=== PATIENT | female | born 1945 | race Caucasian/White ===

== ENCOUNTER 2021-12-26 05:56 | Day surgery (SDC) | payer OTHER ==
[2021-12-24 15:15] LABS: BASOPHILS % (AUTO) 0.6 % (0.0-5.0); EOSINOPHILS % (AUTO) 2.2 % (0.0-8.0); HEMATOCRIT 42.9 % (36-48); MEAN CORPUSCULAR HEMOGLOBIN 29.7 pg (27.0-33.0); MEAN CORPUSCULAR HGB CONC 31.9 g/dL (32.0-36.0); MEAN CORPUSCULAR VOLUME 92.9 fL (79-99); MONOCYTES % (AUTO) 6.7 % (3.0-13.0); NEUTROPHILS % (AUTO) 67.2 % (40.0-77.0); PLATELET COUNT (AUTO) 186 K/uL (130-400); RED BLOOD CELL COUNT(AUTO) 4.62 MIL/uL (4.00-5.50); RED CELL DISTRIBUTION WIDTH 14.6 % (11.0-15.5); WHITE BLOOD COUNT (AUTO) 7.9 K/uL (4.8-10.8)
[2021-12-24 15:27] LABS: INR 2.12 (0.85-1.15); PROTHROMBIN TIME 21.6 SEC (9.6-11.6)
[2021-12-24 15:29] LABS: PARTIAL THROMBOPLASTIN TIME 42.7 SEC (26.3-35.5)
[2021-12-24 15:57] LABS: CREATININE 1.1 mg/dL (0.5-1.5); POTASSIUM 3.8 mmol/L (3.5-5.1)
[2021-12-25 10:13] VITALS: BP 158/61
[2021-12-26] VITALS (8 sets, daily range): BP systolic 94–155; BP diastolic 47–70
[~2021-12-26] VITALS: Ht 167.6 cm; Wt 110.2 kg
[~2021-12-26 05:56] MED LIST: BRIM5DRO4 OD; DORZ10DR19 OD; FURO80TA3 PO; LEVO75TA10 PO; METO-391 PO; SPIR25TA6 PO; WARF-57 PO; WARF7.5T49 PO
[2021-12-26] MEDS ORDERED: BUPIVACAINE/PF 0.25% 30ML VIAL IJ ONE (07:28)
[2021-12-26] MEDS ORDERED: MIDAZOLAM HCL 1 MG/ML 2ML VIAL ONE ×4 (07:28→11:07)
[2021-12-26] MEDS ORDERED: FENTANYL CITRATE PF 50 MCG/1 ML 2ML VIAL ONE (07:29)
[2021-12-26] MEDS ORDERED: LIDOCAINE HCL 1% MDV 50ML VIAL ONE (07:29)
[2021-12-26] MEDS ORDERED: MEPERIDINE-PF 50 MG/ML SYG ONE ×3 (07:35→11:07)
[2021-12-26] MEDS ORDERED: CEFAZOLIN SODIUM 1 GM VIAL IVP ONE (08:00)
[2021-12-26] MEDS ORDERED: 0.9%NACL 1000ML 1,000 ML IV SCH (08:00)
[2021-12-26] MEDS ORDERED: THROMBIN-JMI 5000 UNIT/VIAL TP ONE (10:50)
[2021-12-26] MEDS ORDERED: TRAM50TA4 PO (11:39)
[2021-12-26] MEDS ORDERED: ACETAMINOPHEN WITH CODEINE 1 TAB TAB PO PRN (12:00)
== END 2021-12-26 14:10 | disposition home or self-care (01) ==
LOC: DAH 05:56
PROVIDERS: ATTEND Internal Medicine Cardiovascular Disease
DX: Z45.02 Encounter for adjustment and management of automatic implantable cardiac defibrillator (principal); I42.8 Other cardiomyopathies; I11.0 Hypertensive heart disease with heart failure; I50.22 Chronic systolic (congestive) heart failure; E03.9 Hypothyroidism, unspecified; I47.1 Supraventricular tachycardia; I48.0 Paroxysmal atrial fibrillation; E66.01 Morbid (severe) obesity due to excess calories; M19.90 Unspecified osteoarthritis, unspecified site; Z90.49 Acquired absence of other specified parts of digestive tract; Z85.038 Personal history of other malignant neoplasm of large intestine; Z85.43 Personal history of malignant neoplasm of ovary; Z92.21 Personal history of antineoplastic chemotherapy; Z98.890 Other specified postprocedural states; Z82.49 Family history of ischemic heart disease and other diseases of the circulatory system; Z68.41 Body mass index [BMI] 40.0-44.9, adult
CPT/HCPCS: 33218; 33264; 36415; 80048; 85025; 85610; 85730; 93005; A4215; A4216; A4221; A4222; A4223 ×3; A4606; A4663; A6258; A6402; C1882; J0690; J2175 ×3; J2250 ×4; J3490 ×3; 99156; 99157; J3010

== ENCOUNTER 2023-06-12 23:44 | Emergency (ER) | payer OTHER ==
[~2023-06-12] VITALS: Ht 170.2 cm; Wt 108.9 kg
[~2023-06-12 23:44] MED LIST changes: -BRIM5DRO4 OD; +BRIM5DRO5 OD; +TRAM50TA4 PO
[2023-06-13 00:35] LABS: CREATININE 1.2 mg/dL (0.5-1.5); POTASSIUM 3.4 mmol/L (3.5-5.1)
[2023-06-13 00:36] LABS: BASOPHILS % (AUTO) 0.7 % (0.0-5.0); EOSINOPHILS % (AUTO) 2.7 % (0.0-8.0); HEMATOCRIT 33.4 % (36-48); INR 2.37 (0.85-1.15); LYMPHOCYTES % (AUTO) 25.5 % (21.0-51.0); MEAN CORPUSCULAR HGB CONC 30.5 g/dL (32.0-36.0); MEAN CORPUSCULAR VOLUME 85.2 fL (79-99); MONOCYTES % (AUTO) 8.7 % (3.0-13.0); NEUTROPHILS % (AUTO) 62.1 % (40.0-77.0); PLATELET COUNT (AUTO) 198 K/uL (130-400); RED BLOOD CELL COUNT(AUTO) 3.92 MIL/uL (4.00-5.50); RED CELL DISTRIBUTION WIDTH 17.8 % (11.0-15.5)
[2023-06-13 00:37] LABS: PARTIAL THROMBOPLASTIN TIME 43.5 SEC (26.3-35.5)
[2023-06-13 00:40] LABS: ALBUMIN 3.4 g/dL (3.5-5.0); PHOSPHORUS 3.3 mg/dL (2.5-4.9); TOTAL PROTEIN, SERUM 6.7 g/dL (6.0-8.3)
[2023-06-13 02:32] VITALS: BP 132/49; PULSE 60; RESP 16; O2SAT 96
== END 2023-06-13 06:49 | disposition home or self-care (01) ==
LOC: EDH 23:44
DX: R42 Dizziness and giddiness (principal); Z79.899 Other long term (current) drug therapy; Z95.810 Presence of automatic (implantable) cardiac defibrillator
CPT/HCPCS: 36415; 71045; 80053; 83735; 84100; 84443; 84484; 85025; 85610; 85730; 93005

== ENCOUNTER 2023-06-25 14:01 | Inpatient (IN) | payer OTHER ==
[~2023-06-25] VITALS: Ht 170.2 cm; Wt 110.8 kg
[2023-06-25 18:20] LABS: APPEARANCE,URINE CLEAR (CLEAR); BILIRUBIN,URINE NEGATIVE (NEGATIVE); GLUCOSE, URINE (UA) NEGATIVE (NEGATIVE); KETONES,URINE NEGATIVE (NEGATIVE); LEUKOCYTE ESTERASE ,URINE 25 Leu/uL (NEGATIVE); NITRATE,URINE NEGATIVE (NEGATIVE); PH,URINE 5.5 (5.0-8.0); PROTEIN,URINE NEGATIVE (NEGATIVE); UROBILINOGEN,URINE 0.2 mg/dL (0.2-1.0)
[2023-06-25 18:22] LABS: ADD UA MICROSCOPIC YES; COLOR,URINE YELLOW (YELLOW)
[2023-06-25 18:23] LABS: BACTERIA,URINE RARE /HPF (None Seen); SQUAMOUS EPITHELIAL CELL,UR RARE /HPF (0-2)
[2023-06-25 18:42] LABS: BASOPHILS # (AUTO) 0.05 K/uL (0.00-0.20); BASOPHILS % (AUTO) 0.7 % (0.0-5.0); EOSINOPHILS # (AUTO) 0.13 K/uL (0.00-0.70); EOSINOPHILS % (AUTO) 1.9 % (0.0-8.0); HEMATOCRIT 31.4 % (36-48); IMMATURE GRANULOCYTE ABSOLUTE 0.02 K/uL (0-1); LYMPHOCYTES # (AUTO) 1.6 K/uL (1.0-4.8); LYMPHOCYTES % (AUTO) 22.6 % (21.0-51.0); MEAN CORPUSCULAR HEMOGLOBIN 25.6 pg (27.0-33.0); MEAN CORPUSCULAR HGB CONC 30.6 g/dL (32.0-36.0); MEAN CORPUSCULAR VOLUME 83.7 fL (79-99); MONOCYTES # (AUTO) 0.6 K/uL (0.1-1.0); MONOCYTES % (AUTO) 8.9 % (3.0-13.0); NEUTROPHILS # (AUTO) 4.5 K/uL (1.8-7.7); NEUTROPHILS % (AUTO) 65.6 % (40.0-77.0); PLATELET COUNT (AUTO) 208 K/uL (130-400); RED BLOOD CELL COUNT(AUTO) 3.75 MIL/uL (4.00-5.50); RED CELL DISTRIBUTION WIDTH 17.8 % (11.0-15.5); WHITE BLOOD COUNT (AUTO) 6.9 K/uL (4.8-10.8)
[2023-06-25 18:52] LABS: INR 2.02 (0.85-1.15); PROTHROMBIN TIME 22.4 SEC (9.6-11.6)
[2023-06-25 18:54] LABS: PARTIAL THROMBOPLASTIN TIME 40.7 SEC (26.3-35.5)
[2023-06-25 18:55] LABS: CREATININE 1.5 mg/dL (0.5-1.5); POTASSIUM 3.6 mmol/L (3.5-5.1)
[2023-06-25 19:00] LABS: ALBUMIN 3.2 g/dL (3.5-5.0); BILIRUBIN,TOTAL 0.3 mg/dL (0.2-1.0)
[2023-06-25] MEDS ORDERED: ONDANSETRON 4MG INJ IV PRN (22:30)
[2023-06-25] MEDS ORDERED: ACETAMINOPHEN 325 MG TAB PO PRN ×2 (22:30)
[2023-06-25] MEDS ORDERED: MORPHINE 4 MG SYG IV PRN (22:30)
[2023-06-26] VITALS (9 sets, daily range): BP systolic 96–152; BP diastolic 52–84; PULSE 55–75; RESP 18–20; O2SAT 97
[2023-06-26] MEDS: CEFTRIAXONE 1G VIAL IVPB SCH ×2 (00:05→22:28)
[2023-06-26] MEDS: DOXYCYCLINE 100MG+NS 250ML IV SCH ×3 (00:05→23:14)
[2023-06-26] MEDS: MORPHINE 2 MG SYG IV PRN (02:17)
[2023-06-26] MEDS ORDERED: AMIO200T68 PO (02:54)
[2023-06-26] MEDS ORDERED: HYDR-4060 PO (02:54)
[2023-06-26] MEDS ORDERED: WARF-57 PO (02:54)
[2023-06-26 04:26] LABS: BASOPHILS # (AUTO) 0.03 K/uL (0.00-0.20); BASOPHILS % (AUTO) 0.4 % (0.0-5.0); EOSINOPHILS # (AUTO) 0.14 K/uL (0.00-0.70); EOSINOPHILS % (AUTO) 2.1 % (0.0-8.0); HEMATOCRIT 32.3 % (36-48); IMMATURE GRANULOCYTE ABSOLUTE 0.04 K/uL (0-1); LYMPHOCYTES # (AUTO) 1.4 K/uL (1.0-4.8); LYMPHOCYTES % (AUTO) 20.6 % (21.0-51.0); MEAN CORPUSCULAR HEMOGLOBIN 25.5 pg (27.0-33.0); MEAN CORPUSCULAR VOLUME 84.8 fL (79-99); MONOCYTES # (AUTO) 0.6 K/uL (0.1-1.0); MONOCYTES % (AUTO) 8.3 % (3.0-13.0); NEUTROPHILS # (AUTO) 4.6 K/uL (1.8-7.7); PLATELET COUNT (AUTO) 210 K/uL (130-400); RED BLOOD CELL COUNT(AUTO) 3.81 MIL/uL (4.00-5.50); RED CELL DISTRIBUTION WIDTH 17.9 % (11.0-15.5); WHITE BLOOD COUNT (AUTO) 6.8 K/uL (4.8-10.8)
[2023-06-26 04:44] LABS: CREATININE 1.2 mg/dL (0.5-1.5); MAGNESIUM 2.1 mg/dL (1.80-2.40); PHOSPHORUS 3.2 mg/dL (2.5-4.9); POTASSIUM 3.3 mmol/L (3.5-5.1)
[2023-06-26 04:55] LABS: INR 1.97 (0.85-1.15); PROTHROMBIN TIME 21.9 SEC (9.6-11.6)
[2023-06-26 04:56] LABS: PARTIAL THROMBOPLASTIN TIME 41.1 SEC (26.3-35.5)
[2023-06-26] MEDS ORDERED: KCL 20 MEQ ERTAB PO ONE ×2 (08:31→11:14)
[2023-06-26] MEDS: FAMOTIDINE 20MG TAB PO SCH (08:33)
[2023-06-26] MEDS ORDERED: HEPARIN 5,000 UNIT VIAL SQ SCH (09:00)
[2023-06-26] MEDS: APIXABAN 5 MG TABLET PO SCH ×2 (14:51→22:28)
[2023-06-26] MEDS: AMIODARONE 200 MG TABLET PO SCH (16:22)
[2023-06-26] MEDS: FUROSEMIDE 80 MG TABLET PO SCH (20:01)
[2023-06-26] MEDS: SPIRONOLACTONE 25 MG TAB PO SCH (20:02)
[2023-06-26] MEDS: BRIMONIDINE TARTRATE 0.2% 5 ML BOTTLE OD SCH (20:03)
[2023-06-26] MEDS: DORZOLAMIDE HCL 2% 10ML DROPS OD SCH (20:03)
[2023-06-26] MEDS ORDERED: DORZOLAMIDE HCL 2% 10ML DROPS OD SCH (21:00)
[2023-06-26] MEDS ORDERED: BRIMONIDINE TARTRATE 0.2% 5 ML BOTTLE OD SCH (21:00)
[2023-06-26] MEDS ORDERED: DORZOLAMIDE HCL OD SCH (21:00)
[2023-06-27] VITALS: BP 126/47; PULSE 63; RESP 18
[2023-06-27] MEDS: MORPHINE 2 MG SYG IV PRN (01:30)
[2023-06-27] MEDS: LEVOTHYROXINE 75 MCG TABLET PO SCH (06:30)
[2023-06-27] MEDS: BRIMONIDINE TARTRATE 0.2% 5 ML BOTTLE OD SCH ×2 (09:00→21:00)
[2023-06-27] MEDS: APIXABAN 5 MG TABLET PO SCH ×2 (09:00→21:00)
[2023-06-27] MEDS: FUROSEMIDE 80 MG TABLET PO SCH ×2 (09:00→21:00)
[2023-06-27] MEDS: METOPROLOL SUCCINATE 50 MG TAB.SR.24H PO SCH (09:00)
[2023-06-27] MEDS: FAMOTIDINE 20MG TAB PO SCH (09:00)
[2023-06-27] MEDS: DORZOLAMIDE HCL 2% 10ML DROPS OD SCH ×2 (09:00→21:00)
[2023-06-27] MEDS: DOXYCYCLINE 100MG+NS 250ML IV SCH ×2 (11:30→23:30)
[2023-06-27] MEDS ORDERED: KCL 20 MEQ ERTAB PO ONE (13:16)
[2023-06-27] MEDS: AMIODARONE 200 MG TABLET PO SCH (17:00)
[2023-06-27 20:00] VITALS: BP 127/58; PULSE 65; RESP 19
[2023-06-27] MEDS: SPIRONOLACTONE 25 MG TAB PO SCH (21:00)
[2023-06-27] MEDS: CEFTRIAXONE 1G VIAL IVPB SCH (23:30)
[2023-06-28] VITALS: BP 108/55; PULSE 63; RESP 18
[2023-06-28 00:35] LABS: CREATININE 1.1 mg/dL (0.5-1.5); MAGNESIUM 1.9 mg/dL (1.80-2.40); PHOSPHORUS 3.3 mg/dL (2.5-4.9); POTASSIUM 3.3 mmol/L (3.5-5.1)
[2023-06-28 04:00] VITALS: BP 125/60; PULSE 65; RESP 19
[2023-06-28 04:02] LABS: BASOPHILS # (AUTO) 0.05 K/uL (0.00-0.20); BASOPHILS % (AUTO) 0.8 % (0.0-5.0); EOSINOPHILS # (AUTO) 0.15 K/uL (0.00-0.70); EOSINOPHILS % (AUTO) 2.4 % (0.0-8.0); HEMATOCRIT 32.8 % (36-48); IMMATURE GRANULOCYTE ABSOLUTE 0.03 K/uL (0-1); LYMPHOCYTES # (AUTO) 2.1 K/uL (1.0-4.8); LYMPHOCYTES % (AUTO) 33.3 % (21.0-51.0); MEAN CORPUSCULAR HGB CONC 30.5 g/dL (32.0-36.0); MEAN CORPUSCULAR VOLUME 85.2 fL (79-99); MONOCYTES # (AUTO) 0.6 K/uL (0.1-1.0); MONOCYTES % (AUTO) 9.6 % (3.0-13.0); NEUTROPHILS # (AUTO) 3.3 K/uL (1.8-7.7); NEUTROPHILS % (AUTO) 53.4 % (40.0-77.0); PLATELET COUNT (AUTO) 199 K/uL (130-400); RED BLOOD CELL COUNT(AUTO) 3.85 MIL/uL (4.00-5.50); RED CELL DISTRIBUTION WIDTH 18.2 % (11.0-15.5); WHITE BLOOD COUNT (AUTO) 6.2 K/uL (4.8-10.8)
[2023-06-28 04:08] LABS: CREATININE 1.3 mg/dL (0.5-1.5); POTASSIUM 3.8 mmol/L (3.5-5.1)
[2023-06-28] MEDS: LEVOTHYROXINE 75 MCG TABLET PO SCH (05:28)
[2023-06-28 08:00] VITALS: BP 163/71; PULSE 75; RESP 20
[2023-06-28] MEDS ORDERED: LOPERAMIDE HCL 2 MG CAP PO PRN (08:00)
[2023-06-28 09:33] LABS: INR 1.4 (0.85-1.15); PROTHROMBIN TIME 15.9 SEC (9.6-11.6)
[2023-06-28] MEDS: APIXABAN 5 MG TABLET PO SCH (09:42)
[2023-06-28] MEDS: FAMOTIDINE 20MG TAB PO SCH (09:42)
[2023-06-28] MEDS: BRIMONIDINE TARTRATE 0.2% 5 ML BOTTLE OD SCH (09:43)
[2023-06-28] MEDS: FUROSEMIDE 80 MG TABLET PO SCH (09:43)
[2023-06-28] MEDS: METOPROLOL SUCCINATE 50 MG TAB.SR.24H PO SCH (09:43)
[2023-06-28] MEDS: DORZOLAMIDE HCL 2% 10ML DROPS OD SCH (09:44)
[2023-06-28] MEDS ORDERED: APIX5TAB PO (10:21)
[2023-06-29 09:17] LABS: EOSINOPHILS % (AUTO) 3.3 % (0.0-8.0); HEMATOCRIT 29.5 % (36-48); LYMPHOCYTES % (AUTO) 23.7 % (21.0-51.0); MEAN CORPUSCULAR HEMOGLOBIN 26.4 pg (27.0-33.0); MEAN CORPUSCULAR HGB CONC 31.2 g/dL (32.0-36.0); MEAN CORPUSCULAR VOLUME 84.5 fL (79-99); NEUTROPHILS % (AUTO) 61.8 % (40.0-77.0); PLATELET COUNT (AUTO) 194 K/uL (130-400); RED BLOOD CELL COUNT(AUTO) 3.49 MIL/uL (4.00-5.50); RED CELL DISTRIBUTION WIDTH 18.2 % (11.0-15.5); WHITE BLOOD COUNT (AUTO) 5.2 K/uL (4.8-10.8)
[2023-06-29 09:18] LABS: BASOPHILS # (AUTO) 0.04 K/uL (0.00-0.20); BASOPHILS % (AUTO) 0.8 % (0.0-5.0); EOSINOPHILS # (AUTO) 0.17 K/uL (0.00-0.70); IMMATURE GRANULOCYTE ABSOLUTE 0.02 K/uL (0-1); LYMPHOCYTES # (AUTO) 1.2 K/uL (1.0-4.8); MONOCYTES # (AUTO) 0.5 K/uL (0.1-1.0); NEUTROPHILS # (AUTO) 3.2 K/uL (1.8-7.7)
== END 2023-06-28 12:58 | disposition home or self-care (01) | DRG 300 ==
LOC: EDH 14:01 → EDHIP 22:01 → 4AH 06-26 01:18
PROVIDERS: ADMIT Internal Medicine; ATTEND Internal Medicine
DX: I82.411 Acute embolism and thrombosis of right femoral vein (principal); D68.59 Other primary thrombophilia; E11.9 Type 2 diabetes mellitus without complications; I11.0 Hypertensive heart disease with heart failure; I50.9 Heart failure, unspecified; D50.9 Iron deficiency anemia, unspecified; E03.9 Hypothyroidism, unspecified; Z82.49 Family history of ischemic heart disease and other diseases of the circulatory system; Z85.038 Personal history of other malignant neoplasm of large intestine; Z86.718 Personal history of other venous thrombosis and embolism; Z86.79 Personal history of other diseases of the circulatory system; Z90.710 Acquired absence of both cervix and uterus; Z95.828 Presence of other vascular implants and grafts
CPT/HCPCS: 36415; 70450; 71045; 80048; 80053; 81001; 82105; 82378; 83540; 83550; 83605; 83735; 83880; 84100; 84145; 85025; 85378; 85610; 85730; 86304; 87040; 87077; 87186; 93005; 93971; G0378; J0696; J1644; J2270; J3490

== ENCOUNTER → 2023-11-10 | Outpatient (CLI) | payer OTHER ==
[~2023-11-10] MED LIST changes: +ALBUTEROL 0.083% 2.5 MG/3 ML INH IH ONE; +AMIO200T68 PO; +APIX5TAB PO; +HYDR-4060 PO; -TRAM50TA4 PO; -WARF-57 PO; -WARF7.5T49 PO
== END | disposition home or self-care (01) ==
LOC: RESP 10:30
PROVIDERS: ATTEND Internal Medicine Cardiovascular Disease
DX: R06.02 Shortness of breath (principal); I48.0 Paroxysmal atrial fibrillation
CPT/HCPCS: 94060; 94729

== ENCOUNTER 2025-06-24 01:00 | Emergency (ER) | payer OTHER ==
[~2025-06-24] VITALS: Ht 170.2 cm; Wt 93.0 kg
[~2025-06-24 01:00] MED LIST changes: -ALBUTEROL 0.083% 2.5 MG/3 ML INH IH ONE; -AMIO200T68 PO; -BRIM5DRO5 OD; +BRIM5DRO5 OP; +DAPA10TA PO; -DORZ10DR19 OD; +DORZ10DR9 OP; +DRON400T7 PO; +FAMO40TA7 PO; +FURO-152 PO; -FURO80TA3 PO; -HYDR-4060 PO; +HYDR-4381 PO; -LEVO75TA10 PO; -METO-391 PO; +METO-408 PO; +PRED5TAB PO
--- NOTE | 2025-06-24 01:15 | ERN ---
General Chief Complaint: AICD FIRED OR SHOCKED Stated Complaint: AICD FIRED X 2 Time Seen by MD: 01:04 Source: patient History of Present Illness Initial Comments 79-year-old female with CHF secondary to chemotherapy for colon cancer. She has had a pacemaker defibrillator for many years. Tonight as she was going to bed it shocked her twice. The last time this device shocked her it was because the wires were loose and so she comes in for evaluation. Timing/Duration: 1-3 hours Allergies: Coded Allergies: No Known Allergies (Verified Allergy, Unknown, 12/24/21) Home Meds Reported Medications Prednisone (Prednisone) 5 Mg Tablet, 5 MG PO DAILY, TAB 04/10/25 Hydrocodone/Acetaminophen (Hydrocodone-Acetamin 10-300 mg) 10 Mg-300 Mg Tablet, 1 TAB PO Q8HPRN PRN for BACK PAIN for 30 Days, #120 TAB 0 Refills 04/10/25 Dapagliflozin Propanediol (Farxiga) 10 Mg Tablet, 10 MG PO DAILY, TAB 04/10/25 Apixaban (Eliquis) 5 Mg Tablet, 5 MG PO BID, TAB 04/10/25 Spironolactone (Spironolactone) 25 Mg Tablet, 12.5 MG PO DAILY PRN for EDEMA, TAB 04/10/25 Metoprolol Succinate (Metoprolol Succinate) 25 Mg Tab.er.24h, 12.5 MG PO DAILY, TAB 04/10/25 Dronedarone Hydrochloride (Multaq) 400 Mg Tablet, 400 MG PO BID, TAB 04/10/25 Furosemide (Lasix) 20 Mg Tablet, 100 MG PO BID, TAB 04/10/25 Famotidine (Famotidine) 40 Mg Tablet, 40 MG PO HS, TAB 04/10/25 Brimonidine Tartrate (Brimonidine Tartrate) 0.2 % Drops, 1 DROP OP BID, #10 ML 0 Refills 04/10/25 Dorzolamide HCl (Dorzolamide HCl) 2 % Drops, 1 DROP OP BID, #30 ML 0 Refills 04/10/25 Past Medical History Past Medical History: Cancer, CHF, Heart Disease, Hypertension, Hypothyroid Medical History Other: Cardiac arrhythmia, SVT, COLON CANCER, Past Surgical History: Hysterectomy, Pacer/AICD Surgical History Other: COLON RESECTION WITH REANASTOMOSIS, LUNG LESION, R EYE Family History Family History: HTN Social History Social History: Negative, Lives with family Constitutional: (-) chills, (-) diaphoresis, (-) fever, (-) malaise, (-) weakness, (-) other documentation EENTM: (-) eye pain, (-) blurred vision, (-) tearing, (-) double vision, (-) ear pain, (-) ear discharge, (-) nose pain, (-) nose congestion, (-) throat pain, (-) Throat swelling, (-) mouth pain, (-) tooth pain, (-) mouth swelling, (-) other documentation Respiratory: (-) cough, (-) orthopnea, (-) short of breath, (-) stridor, (-) wheezing, (-) other documentation Cardiovascular: (-) chest pain, (-) edema, (-) palpitations, (-) syncope, (-) dyspnea on exertion, (-) other documentation Gastrointestinal/Abdominal: (-) nausea, (-) vomiting, (-) diarrhea, (-) abdominal pain, (-) abdominal distention, (-) constipation, (-) rectal bleeding, (-) dark stool/melena, (-) other documentation Musculoskeletal: (-) Neck pain, (-) back pain, (-) Flank Pain, (-) joint pain, (-) joint swelling, (-) muscle pain, (-) muscle stiffness, (-) gout, (-) other documentation Physical Exam General Appearance: (+) no apparent distress Orientation: (+) alert, (+) oriented x 3 Head/Face Trauma: No Eye: bilateral eye normal inspection, bilateral eye PERRL, bilateral eye EOMI Ear, Nose, Throat: (+) hearing grossly normal, (+) normal ENT inspection, (+) moist mucous membraine Neck: (+) normal inspection, (+) supple Respiratory: (+) chest non-tender, (+) lungs clear, (+) well ventilated Heart: (+) regular, (+) no gallop Vascular: (+) no edema, (+) normal peripheral pulse Gastrointestinal: (+) soft, (+) non-tender, (+) bowel sound present Results Laboratory and Microbiology Lab and Micro Result Laboratory Tests Test 06/24/25 01:42 06/24/25 04:33 Sodium Level 143 mmol/L (136-145) Potassium Level 3.4 mmol/L (3.5-5.1) L Chloride Level 103 mmol/L (101-111) Carbon Dioxide Level 34 mmol/L (21-32) H Blood Urea Nitrogen 38 mg/dL (7-18) H Creatinine 1.1 mg/dL (0.5-1.0) H Glomerular Filtration Rate Calc 50 mL/min (>90) Random Glucose 113 mg/dL (70-105) H Total Calcium 8.7 mg/dL (8.5-10.1) Magnesium Level 2.50 mg/dL (1.80-2.40) H Total Bilirubin 0.3 mg/dL (0.2-1.0) Aspartate Amino Transf (AST/SGOT) 15 U/L (10-37) Alanine Aminotransferase (ALT/SGPT) 13 U/L (12-78) Alkaline Phosphatase 94 U/L (50-136) Troponin I High Sensitivity 37 ng/L (4-50) B-Type Natriuretic Peptide 610 pg/mL (0-100) H Total Protein 5.9 g/dL (6.0-8.3) L Albumin 3.2 g/dL (3.5-5.0) L Urine Color LIGHT-YELLOW (YELLOW) Urine Appearance CLEAR (CLEAR) Urine pH 6.0 (5.0-8.0) Urine Specific [place] 1.014 (1.001-1.031) Urine Protein NEGATIVE mg/dL (NEGATIVE) Urine Glucose (UA) 500 mg/dL (NEGATIVE) H Urine Ketones NEGATIVE mg/dL (NEGATIVE) Urine Occult Blood NEGATIVE (NEGATIVE) Urine Nitrate NEGATIVE (NEGATIVE) Urine Bilirubin NEGATIVE mg/dL (NEGATIVE) Urine Urobilinogen 0.2 mg/dL (0.2-1.0) Urine Leukocyte Esterase 25 [place]/uL (NEGATIVE) H Urine RBC 0-1 /HPF (0-1) Urine WBC 0-1 /HPF (0-1) Urine Squamous Epithelial Cells RARE /HPF (0-2) Urine Bacteria None /HPF (None Seen) MDM MDM: Differential diagnosis: Electrolyte abnormalities, acute MD, electrode problems, cardiac arrhythmias Rationale: Tests considered and ordered secondary to shared decision making include: Previous outside records reviewed: Old ER visits. Risk of complication and/or morbidity or mortality of patient management: None Medications-Per medication reconciliation Need for hospitalization: Patient does meet criteria for hospitalization. Need for emergency major/minor surgery: No There are no social concerns with this patient. Prescription drug management Prescriptions will include symptomatic care Patient's prior external medical records from other ER visits were reviewed by me as indicated. Prior testing and results from previous visits were reviewed. Prior tests were taken into account with medical decision making and resource utilization, independent historian/historians were used to obtain complete medical history. I independently interpreted the test that were performed, results were reviewed by me and considered findings on radiology if ordered. We finally were able to interrogate the patient's pacemaker and the results show that it is working properly. The patient went into V-tach and she was shocked twice. The 1st shock was ineffective and therefore a 2nd shock was delivered. So her pacemaker defibrillator is working just fine and the wires are not disconnected. Patient's urine was negative for infection. Chemistry panel shows a potassium of 3.4 and a BNP of 600. Her BUN and creatinine are both elevated but they are at her baseline levels compared to six months ago. I will give the patient some effervescent potassium citrate and discharge her from the hospital. ED Course Orders Procedure Category Date Status Time 12 Lead Ekg Tracing- EKG 06/24/25 Complete Technical 01:27 B-Type Natriuretic LAB 06/24/25 Complete Peptide 01:27 Basic Metabolic Panel LAB 06/24/25 Complete 01:27 Troponin I High LAB 06/24/25 Complete Sensitivity 01:27 Comprehensive LAB 06/24/25 Complete Metabolic Panel 01:27 Urinalysis Profile LAB 06/24/25 Complete 01:27 Magnesium LAB 06/24/25 Complete 01:27 Chest 1vw RAD 06/24/25 Resulted 01:27 Lactated Ringers PHA 06/24/25 Complete 1000ml (Lactated 01:52 Current Medications Medications (Trade) Dose Ordered Sig/Jesus Route PRN Reason Start Time Stop Time Status Last Admin Dose Admin Lactated Ringer's (Lactated Ringers 1000ml) 500 ml BOLUS STAT IV 06/24/25 01:52 06/24/25 01:56 DC 06/24/25 02:02 Vital Signs Date Time Temp Pulse Resp B/P (MAP) Pulse Ox O2 Delivery O2 Flow Rate FiO2 06/24/25 01:26 98.6 65 11 100/46 99 Room Air* 2 N/A Nasal Cannula* 06/24/25 01:01 98.6 66 16 92/42 100 Room Air DX & DISP Disposition: Discharge Departure Impression: Primary Impression: Encounter for interrogation of cardiac pacemaker Additional Impression: Hypokalemia Condition: Stable Additional Instructions: Your pacemaker fired twice today because you had an episode of V-tach. The 2nd shock was necessary because the 1st shocked did not work. Your pacemaker is functioning well. The only abnormality we saw in your laboratory work was a slightly low potassium and we have given you some oral potassium to replete that. You are safe to be discharged home. You should follow-up with your furnace reliner to let him know about your single episode of V-tach. Please return if you have other cardiac symptoms that are worrisome or if your pacemaker shocks you again tonight or tomorrow. Referrals: HAYDEN FIERRO MD (PCP) GAY ANDRADE MD Jun 24, 2025 01:15
--- NOTE | 2025-06-24 01:43 | EKG ---
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
[2025-06-24] MEDS: LACTATED RINGERS 1000ML IV STA (02:02)
[2025-06-24 02:08] LABS: CREATININE 1.1 mg/dL (0.5-1.0); GLOMERULAR FILTR. RATE CALC 50.0 mL/min (>90); GLUCOSE,RANDOM 113.0 mg/dL (70-105); SODIUM SERUM 143.0 mmol/L (136-145); UREA NITROGEN, BLOOD 38.0 mg/dL (7-18)
[2025-06-24 02:13] LABS: ASPARTATE AMINOTRANSFERASE 15.0 U/L (10-37); TOTAL PROTEIN, SERUM 5.9 g/dL (6.0-8.3)
--- NOTE | 2025-06-24 03:43 | HMCIMG ---
EXAM: CR Chest, 1 view CLINICAL HISTORY: Pacemaker wires. COMPARISON: Chest radiograph dated 06/25/2023. FINDINGS: Stable mild cardiomegaly and left-sided cardiac pacemaker device, the cardiac leads are intact and within normal limits. No acute infiltrate, effusion, or pneumothorax. Questionable hiatus hernia. Mild COPD. No acute osseous abnormality. IMPRESSION: Stable mild cardiomegaly and left-sided cardiac pacemaker device, the cardiac leads are intact and within normal limits. No acute infiltrate, effusion, or pneumothorax. Questionable hiatus hernia. Mild COPD. No gross interval changes. /[place]
--- NOTE | 2025-06-24 04:42 | NUR ---
DEFIBRILLATOR INTERROGATION PERFORMED AT BEDSIDE BY ED RN AND CHARGE NURSE PER ED MD REQUEST. RESULTS GIVEN AND REVIEWED BY ED MD ANDRADE.
[2025-06-24 04:50] LABS: APPEARANCE,URINE CLEAR (CLEAR); GLUCOSE, URINE (UA) 500 mg/dL (NEGATIVE); LEUKOCYTE ESTERASE ,URINE 25 Leu/uL (NEGATIVE); NITRATE,URINE NEGATIVE (NEGATIVE); OCCULT BLOOD,URINE NEGATIVE (NEGATIVE)
[2025-06-24 04:51] LABS: ADD UA MICROSCOPIC YES
[2025-06-24 04:54] LABS: SQUAMOUS EPITHELIAL CELL,UR RARE /HPF (0-2)
--- NOTE | 2025-06-24 05:35 | NUR ---
[facility] CONTACTED FOR TRANSFER HOME
--- NOTE | 2025-06-24 06:01 | NUR ---
[facility] ARRIVED FOR TRANSFER HOME
[2025-06-24 06:10] VITALS: BP 125/58; PULSE 62; RESP 15; TEMP 98.5; O2SAT 98
== END 2025-06-24 06:10 | disposition home or self-care (01) ==
LOC: EDBD 01:00 → EDH 01:00
DX: T82.199A Other mechanical complication of unspecified cardiac device, initial encounter (principal); E03.9 Hypothyroidism, unspecified; E87.6 Hypokalemia; I11.0 Hypertensive heart disease with heart failure; I50.9 Heart failure, unspecified; Z79.01 Long term (current) use of anticoagulants; Z79.52 Long term (current) use of systemic steroids; Z79.84 Long term (current) use of oral hypoglycemic drugs; Z79.899 Other long term (current) drug therapy; Z90.710 Acquired absence of both cervix and uterus; Z95.810 Presence of automatic (implantable) cardiac defibrillator; Y82.8 Other medical devices associated with adverse incidents; Y92.89 Other specified places as the place of occurrence of the external cause
CPT/HCPCS: 36415; 71045; 80053; 81001; 83735; 83880; 84484; 93005; 99285